=== PATIENT | male | born 1965 | race Caucasian/White ===

== ENCOUNTER 2018-06-18 02:45 | Emergency (ER) | payer OTHER ==
[~2018-06-18] VITALS: Ht 172.7 cm; Wt 90.7 kg
[2018-06-18 03:00] VITALS: BP_SYST 137
[2018-06-18] MEDS ORDERED: BACITRACIN 1 GM OINT TP ONE (03:15)
[2018-06-18] MEDS ORDERED: SULFAMETHOXAZOLE/TRIMETHOPR DS 1 TABLET PO ONE (03:15)
[2018-06-18] MEDS ORDERED: DIPHENHYDRAMINE HCL 25 MG CAPSULE PO ONE (03:15)
[2018-06-18 03:33] VITALS: BP_SYST 133
== END 2018-06-18 03:33 | disposition home or self-care (01) ==
LOC: SED 02:45
DX: T63.441A Toxic effect of venom of bees, accidental (unintentional), initial encounter (principal); L03.114 Cellulitis of left upper limb; Y92.89 Other specified places as the place of occurrence of the external cause
CPT/HCPCS: 99284; Q0163

== ENCOUNTER 2022-05-18 02:17 | Emergency (ER) | payer OTHER ==
[~2022-05-18] VITALS: Ht 172.7 cm; Wt 95.3 kg
[2022-05-18 02:35] VITALS: BP_SYST 148
[2022-05-18] MEDS ORDERED: IBUPROFEN 400 MG TABLET PO ONE (03:30)
[2022-05-18] MEDS ORDERED: NACL 0.9% 1,000 ML IV ONE (03:45)
[2022-05-18] MEDS ORDERED: ONDANSETRON HCL 4 MG/2 ML VIAL IVP ONE (03:45)
[2022-05-18] MEDS ORDERED: ACETAMINOPHEN 500 MG TABLET PO ONE (03:45)
[2022-05-18 04:42] LABS: ANION GAP 7 (5-15); CALCIUM 7.7 mg/dL (8.4-11.0); CHLORIDE 102 mmol/L (98-107); CREATININE 0.94 mg/dL (0.55-1.30); GLUCOSE 129 mg/dL (70-99); POTASSIUM 3.9 mmol/L (3.5-5.1); SODIUM SERUM 134 mmol/L (136-145); UREA NITROGEN, BLOOD 10 mg/dL (8-21)
[2022-05-18 04:46] LABS: BASOPHILS % (AUTO) 0.5 % (0.0-2.0); EOSINOPHILS % (AUTO) 0.2 % (0.0-4.0); HEMATOCRIT 46.8 % (36-54); HEMOGLOBIN 15.9 g/dL (14.0-18.0); LYMPHOCYTES # (AUTO) 0.6 K/uL (1.0-5.5); LYMPHOCYTES % (AUTO) 9.2 % (20.5-51.5); MEAN CORPUSCULAR HEMOGLOBIN 30 pg (27-31); MEAN CORPUSCULAR HGB CONC 34 % (32-36); MEAN CORPUSCULAR VOLUME 89 fL (79.0-98.0); MONOCYTES # (AUTO) 0.4 K/uL (0.0-1.0); MONOCYTES % (AUTO) 6.5 % (1.7-9.3); NEUTROPHILS # (AUTO) 5.5 K/uL (1.8-7.7); NEUTROPHILS % (AUTO) 83.6 % (40.0-70.0); PLATELET COUNT (AUTO) 123 K/uL (130-430); RED BLOOD CELL COUNT(AUTO) 5.25 MIL/uL (4.2-6.2); RED CELL DISTRIBUTION WIDTH 14.3 % (9.0-15.0); WHITE BLOOD COUNT (AUTO) 6.6 K/uL (4.8-10.8)
[2022-05-18 04:56] LABS: ALANINE AMINOTRANSFERASE 47 U/L (12-78); ALBUMIN 3.4 g/dL (3.4-4.8); ASPARTATE AMINOTRANSFERASE 29 U/L (10-37); GFR AFRICAN AMERICAN 106 mL/min (>90); TOTAL BILIRUBIN 0.5 mg/dL (0.0-1.0)
[2022-05-18 06:13] VITALS: BP_SYST 132
[2022-05-18] MEDS ORDERED: AMOX-423 PO (07:12)
[2022-05-18] MEDS ORDERED: ZIT250 PO (07:12)
[2022-05-18] MEDS ORDERED: AMOXICILLIN 500 MG CAPSULE PO ONE (07:15)
[2022-05-18] MEDS ORDERED: AZITHROMYCIN 250 MG TABLET PO ONE (07:15)
== END 2022-05-18 07:34 | disposition home or self-care (01) ==
LOC: SED 02:17
DX: J18.1 Lobar pneumonia, unspecified organism (principal); E11.9 Type 2 diabetes mellitus without complications; I10 Essential (primary) hypertension; Z20.822 Contact with and (suspected) exposure to COVID-19
CPT/HCPCS: 36415; 71045; 80053; 83605; 84484; 85025; 87040; 87426; 87804 ×2; 93005; 96361; 96374; 99285; J2405; J7030